=== PATIENT | male | born 1980 ===

== ENCOUNTER 2016-09-03 00:36 | Emergency (ER) | payer OTHER ==
--- NOTE | 2016-09-03 01:20 | ED ORDER SUMMARY ---
..... Patient: AGUS ACOSTA OrderSheet [facility] VisitID: [id number] [address] [place] [address] 36y, M Registration Date/Time: 09/03/2016 ORDER SHEET Weight: 122.4 kg (stated) Allergies: Codeine GENERAL ORDERS: Dress Wounds (:09/03/2016 [facility]) (1:28 CBradburn R.N.) Culture, Wound Surface (Back) (back lesion) Urgent (01:09/03/2016 [facility]) (Ack 1:25 [facility]) (1:26 CHategekimana) MEDICATION ORDERS: Bupivacaine-Epinephrine Injection 0.5 % (soln) (NOW) (:09/03/2016 CBradburn R.N. verbal order read back to [facility]) (Ack 1:09 CBradburn R.N.) (1:09 CBradburn R.N.) Bactrim DS PO (Tablet 800-160 mg) 1 tab (NOW) (:09/03/2016 [facility]) (Ack 1:25 CBradburn R.N.) (1:28 CBradburn R.N.) Ibuprofen PO 600 mg (NOW) (:09/03/2016 [facility]) (Ack 1:25 CBradburn R.N.) (1:28 CBradburn R.N.) IV FLUIDS: ORDER SHEET NOTES: [Electronically signed by Meghna Jenkins R.N. (:09/03/2016)] [Electronically signed by Neftali Cardenas DO (02:11 09/03/2016)] [Electronically locked/signed by Meghna Jenkins R.N. (09/03/2016)]
--- NOTE | 2016-09-03 01:20 | ED CLINICAL REPORT ---
Clinical Report - Physicians/Mid Levels [facility] [address] [place] [place] [address] 09/03/2016 0:36 Patient: AGUS ACOSTA Time Seen: 00:59. Arrived- By private vehicle. Historian- patient. HISTORY OF PRESENT ILLNESS Chief Complaint: LESION and TENDER AREA. This started lesion present for years but several days ago began "leaking" and is still present. It was gradual in onset and has been waxing/waning. It is described as painful. It has been located on the right back. No cause has been identified. Similar symptoms previously: Recent medical care: Not recently seen/assessed. REVIEW OF SYSTEMS No fever, chills, sore throat, cough or headache. No chest pain, abdominal pain, nausea, diarrhea or difficulty with urination. No vomiting. All systems otherwise negative, except as recorded above. PAST HISTORY See nurses notes. Abscess/cyst dental abscess. Surgeries: Abscess I&D. Medications: Potassium Oral 1 tablet, daily. Allergies: Codeine. Definite Moderate(hives). SOCIAL HISTORY Never smoker. Occasional alcohol use. No drug use. ADDITIONAL NOTES The nursing notes have been reviewed. PHYSICAL EXAM Vital Signs: 09/03/2016 00:42 BP: 113/65. HR: 68. RR: 18. O2 saturation: 98%. Temp: 97.9 F. Pain level now: 7/10. Appearance: Alert. Oriented X3. No acute distress. Eyes: Pupils equal, round and reactive to light. Conjunctivae and eyelids normal. ENT: Nose normal. Pharynx normal. Neck: Neck supple. CVS: Normal heart rate and rhythm. Heart sounds normal. Respiratory: No respiratory distress. Breath sounds normal. Abdomen: Nontender. No organomegaly. Skin: Skin warm and dry. Normal skin color. Normal skin turgor. Single small tender indurated area to the back (excoriated, slightly bleeding lesion over area of apparent lipoma). No fluctuance, pointing or drainage. Extremities: Normal external inspection. Extremities nontender. Neuro: Oriented X 3. No motor deficit. No sensory deficit. LABS, X-RAYS, AND EKG Pulse Oximetry: 09/03/2016 00:42 O2 saturation: 98%. (FIO2 - room air). Interpretation: normal. PROGRESS AND PROCEDURES Incision & Drainage of Abscess: The abscess is located in the back. The risks of the procedure, benefits and alternatives were explained. Local anesthesia provided using 0.50% Marcaine with epi. Skin cleansed with Betadine. The abscess was incised with a #11 surgical blade. No pus drained. Sample obtained for cultures and gram stain. A dressing was applied. ( No pus - most consistent with lipoma). Course of Care: Ibuprofen 600 mg PO given. Bactrim DS 1 tab PO. Lesion is c/w lipoma - may have mild superficial cellulitis - appears to be picking the area. I have discussed work up options with patient and he would like to make an incision over the area to be assured that there is no abscess - this is done and no signs of abscess now. He may have mild, early superimposed cellulitis now - I will cover. He is having some discomfort to the area for quite some time and may have the lipomatous lesion removed by his pcp or surgeon electively. Patient/family counseled. Old ED records reviewed. Disposition: Discharged. Condition: stable and improved. CLINICAL IMPRESSION Lipoma located on the back. Possible cellulitis of the back. INSTRUCTIONS Protect wound and keep wound area clean. Change dressing twice daily. You may wash wounds briefly, then dry. Apply neosporin twice daily. Drink plenty of fluids. Warnings: Further evaluation is necessary. It is very important to follow up with a physician. INFECTION: Watch for signs of infection (increasing heat and redness, pus-like drainage, swelling, or increased pain). Return or see your doctor if these signs occur. GENERAL WARNINGS: Return or contact your physician immediately if your condition worsens or changes unexpectedly, if not improving as expected, or if other problems arise. Prescription Medications: Bactrim DS 800 mg / 160 mg: take 1 tablet orally every 12 hours for 3 days. No refill. Substitution is permissible. OTC Medications: Acetaminophen (available over the counter): take according to label instructions. Motrin (available over the counter): take according to label instructions. Follow-up: Follow up with your doctor in about seven days. Follow-up with: [facility], , , [address], , [place], [address]; [facility], , , [address] [place] [address], , [place], ; [facility], [facility], , [address] [place] [address] Follow-up with: [facility], , , [address] [place] [address], [place] [address] Follow up in about five days. (Electronically signed by Neftali Cardenas DO 09/03/2016 2:11)
--- NOTE | 2016-09-03 01:20 | ED NURSING NOTES ---
Clinical Report - Nurses [place] [address] [address] 09/03/2016 0:36 Patient: AGUS ACOSTA TRIAGE Triage time 00:42. Acuity: LEVEL 4. Chief Complaint: SKIN LESION. --00:47 Meghna Jenkins R.N. 00:42 09/03/16. BP: 113/65. HR: 68. RR: 18. O2 saturation: 98%. Temp: 97.9 F. Pain level now: 11/04. --00:47 Meghna Jenkins R.N. Weight: 122.4 kg stated. Height/Length: 79 inches Per Patient. BMI: 30.4. --00:42 Meghna Jenkins R.N. Medications Potassium Oral 1 tablet, daily. --00:45 Meghna Jenkins R.N. Allergies Codeine. Definite Moderate(hives) --00:45 Meghna Jenkins R.N. History Arrived by private vehicle. Historian: patient. Accompanied by family. Primary physician (none). Location - middle aspect of back and back. This is a recurrent problem. Symptoms still present (2 years). It is described as severely painful. ( here for skin abscess started 2 years ago, started leaking tonight very painful). PAST MEDICAL HX: Immunizations: up-to-date. SOCIAL HX: Never smoker. Occasional alcohol use. Last drink was 2 months ago. No drug use. SELF HARM ASSESSMENT: A self harm assessment was performed. The patient answered "no" to the question "Have you recently felt down, depressed, or hopeless?", "Have you noticed less interest or pleasure in doing things?", "Do you have thoughts of harming or killing yourself?", "Are you here because you tried to hurt yourself?", "Have you ever tried to hurt yourself before today?", "Have you recently had thoughts about harming or killing others?" and "Do you have any dangerous items in your possession?". --00:47 Meghna Jenkins R.N. PROBLEMS: Sebaceous Cyst. Dental Caries. --00:45 Meghna Jenkins R.N. Dental Abscess [RuleOut]. --00:45 Meghna Jenkins R.N. ADDITIONAL SURGERIES: Appendectomy. --00:45 Meghna Jenkins R.N. Interventions ID band on patient. --00:47 Meghna Jenkins R.N. PHYSICAL ASSESSMENT Ambulatory to room. GENERAL / NEURO / PSYCH: Alert. The patient does not appear to be in acute distress. Oriented X 4. HEENT: Pupils equal, round and reactive to light. Mucous membranes are pink. RESPIRATORY: Respirations not labored. Breath sounds within normal limits. CVS: Capillary refill less than 2 seconds. Pulses within normal limits. GI / : Abdomen nontender. SKIN: Skin is warm and dry. Single growth with erythema and tenderness on the back. --00:48 Meghna Jenkins R.N. NURSING PROGRESS NOTES Patient gowned. Two patient identifiers checked. Call light placed in reach of patient. Side rails up x 1. Bed placed in lowest position. Brakes of bed on. --00:48 Meghna Jenkins R.N. Patient ready for evaluation- chart flagged. --00:48 Meghna Jenkins R.N. 01:09/03/2016 Bupivacaine-Epinephrine (Bupivacaine-Epinephrine) Injection Injectable 0.5 % given. Allergies verified and confirmed 5 rights. (at bedside for MD use). --01: Meghna Jenkins R.N. 01:09/03/2016 Bactrim DS (Sulfamethoxazole-TMP DS) PO Tablets 1 tab given. Allergies verified and confirmed 5 rights. --01:28 Meghna Jenkins R.N. 01:28 09/03/2016 Ibuprofen PO Tablets 600 mg given. Allergies verified and confirmed 5 rights. --01:28 Meghna Jenkins R.N. I & D: Incision and Drainage of abscess performed by ED physician. The abscess is located on the back. Preparation: Incision and Drainage tray set up with 0.50% Marcaine with epi. Post-procedure: he was stable, no complications, bleeding controlled and dressing intact. Estimated blood loss: 0. ( culture sent to lab). --01:30 Meghna Jenkins R.N. Applied dressing consisting of 4x4 gauze and telfa pad. Secured with tape. --01:37 Meghna Jenkins R.N. DISPOSITION / DISCHARGE Condition at departure: improved and stable. No learning barriers present. Discharge instructions provided and reviewed with the patient and family. Reviewed medication(s) side effects, precautions, dosing and course information. Prescription(s) given to the patient. Patient and family verbalized understanding. Written instructions provided in Upper Sorbian. The patient was discharged home and accompanied by family. He left the Emergency Department ambulatory and via private vehicle. Family member driving. --01:41 Meghna Jenkins R.N. 01:37 09/03/16. BP: 129/76 taken on the left arm, while lying. HR: 89 (regular and normal rate). RR: 18 (regular and unlabored). O2 saturation: 100% on room air. Temp: deferred. Pain level now: 10/05. --01:41 Meghna Jenkins R.N. Departure time: 3. --01:41 Meghna Jenkins R.N. Locked/Released at 09/03/2016 1:41 by Meghna Jenkins R.N.
--- NOTE | 2016-09-03 01:20 | ED ORDER SUMMARY ---
..... Patient: AGUS ACOSTA OrderSheet [facility] VisitID: [id number] [address] [place] [address] 36y, M Registration Date/Time: 09/03/2016 ORDER SHEET Weight: 122.4 kg (stated) Allergies: Codeine GENERAL ORDERS: Dress Wounds (:09/03/2016 [facility]) (1:28 CBradburn R.N.) Culture, Wound Surface (Back) (back lesion) Urgent (01:09/03/2016 [facility]) (Ack 1:25 [facility]) (1:26 CHategekimana) MEDICATION ORDERS: Bupivacaine-Epinephrine Injection 0.5 % (soln) (NOW) (:09/03/2016 CBradburn R.N. verbal order read back to [facility]) (Ack 1:09 CBradburn R.N.) (1:09 CBradburn R.N.) Bactrim DS PO (Tablet 800-160 mg) 1 tab (NOW) (:09/03/2016 [facility]) (Ack 1:25 CBradburn R.N.) (1:28 CBradburn R.N.) Ibuprofen PO 600 mg (NOW) (:09/03/2016 [facility]) (Ack 1:25 CBradburn R.N.) (1:28 CBradburn R.N.) IV FLUIDS: ORDER SHEET NOTES: [Electronically signed by Meghna Jenkins R.N. (:09/03/2016)] [Electronically signed by Neftali Cardenas DO (02:11 09/03/2016)] [Electronically locked/signed by Meghna Jenkins R.N. (09/03/2016)]
--- NOTE | 2016-09-03 01:20 | ED CLINICAL REPORT ---
Clinical Report - Physicians/Mid Levels [facility] [address] [place] [address] 09/03/2016 0:36 Patient: AGUS ACOSTA Time Seen: 00:59. Arrived- By private vehicle. Historian- patient. HISTORY OF PRESENT ILLNESS Chief Complaint: LESION and TENDER AREA. This started lesion present for years but several days ago began "leaking" and is still present. It was gradual in onset and has been waxing/waning. It is described as painful. It has been located on the right back. No cause has been identified. Similar symptoms previously: Recent medical care: Not recently seen/assessed. REVIEW OF SYSTEMS No fever, chills, sore throat, cough or headache. No chest pain, abdominal pain, nausea, diarrhea or difficulty with urination. No vomiting. All systems otherwise negative, except as recorded above. PAST HISTORY See nurses notes. Abscess/cyst dental abscess. Surgeries: Abscess I&D. Medications: Potassium Oral 1 tablet, daily. Allergies: Codeine. Definite Moderate(hives). SOCIAL HISTORY Never smoker. Occasional alcohol use. No drug use. ADDITIONAL NOTES The nursing notes have been reviewed. PHYSICAL EXAM Vital Signs: 09/03/2016 00:42 BP: 113/65. HR: 68. RR: 18. O2 saturation: 98%. Temp: 97.9 F. Pain level now: 7/10. Appearance: Alert. Oriented X3. No acute distress. Eyes: Pupils equal, round and reactive to light. Conjunctivae and eyelids normal. ENT: Nose normal. Pharynx normal. Neck: Neck supple. CVS: Normal heart rate and rhythm. Heart sounds normal. Respiratory: No respiratory distress. Breath sounds normal. Abdomen: Nontender. No organomegaly. Skin: Skin warm and dry. Normal skin color. Normal skin turgor. Single small tender indurated area to the back (excoriated, slightly bleeding lesion over area of apparent lipoma). No fluctuance, pointing or drainage. Extremities: Normal external inspection. Extremities nontender. Neuro: Oriented X 3. No motor deficit. No sensory deficit. LABS, X-RAYS, AND EKG Pulse Oximetry: 09/03/2016 00:42 O2 saturation: 98%. (FIO2 - room air). Interpretation: normal. PROGRESS AND PROCEDURES Incision & Drainage of Abscess: The abscess is located in the back. The risks of the procedure, benefits and alternatives were explained. Local anesthesia provided using 0.50% Marcaine with epi. Skin cleansed with Betadine. The abscess was incised with a #11 surgical blade. No pus drained. Sample obtained for cultures and gram stain. A dressing was applied. ( No pus - most consistent with lipoma). Course of Care: Ibuprofen 600 mg PO given. Bactrim DS 1 tab PO. Lesion is c/w lipoma - may have mild superficial cellulitis - appears to be picking the area. I have discussed work up options with patient and he would like to make an incision over the area to be assured that there is no abscess - this is done and no signs of abscess now. He may have mild, early superimposed cellulitis now - I will cover. He is having some discomfort to the area for quite some time and may have the lipomatous lesion removed by his pcp or surgeon electively. Patient/family counseled. Old ED records reviewed. Disposition: Discharged. Condition: stable and improved. CLINICAL IMPRESSION Lipoma located on the back. Possible cellulitis of the back. INSTRUCTIONS Protect wound and keep wound area clean. Change dressing twice daily. You may wash wounds briefly, then dry. Apply neosporin twice daily. Drink plenty of fluids. Warnings: Further evaluation is necessary. It is very important to follow up with a physician. INFECTION: Watch for signs of infection (increasing heat and redness, pus-like drainage, swelling, or increased pain). Return or see your doctor if these signs occur. GENERAL WARNINGS: Return or contact your physician immediately if your condition worsens or changes unexpectedly, if not improving as expected, or if other problems arise. Prescription Medications: Bactrim DS 800 mg / 160 mg: take 1 tablet orally every 12 hours for 3 days. No refill. Substitution is permissible. OTC Medications: Acetaminophen (available over the counter): take according to label instructions. Motrin (available over the counter): take according to label instructions. Follow-up: Follow up with your doctor in about seven days. Follow-up with: [facility], , , [address], , [place], [address]; [facility], , , [address] [place] [address], , [place], ; [facility], [facility], , [address] [place] [address] Follow-up with: [facility], , , [address] [place] [address], [place] [address] Follow up in about five days. (Electronically signed by Neftali Cardenas DO 09/03/2016 2:11)
--- NOTE | 2016-09-03 02:12 | ED DISCHARGE INSTRUCTIONS ---
Patient: AGUS ACOSTA General [facility] VisitID: [id number] [address] [place] [address] 36y, M Registration Date/Time: 09/03/2016 Lipoma located on the back. INSTRUCTIONS Protect wound and keep wound area clean. Change dressing twice daily. You may wash wounds briefly, then dry. Apply neosporin twice daily. Drink plenty of fluids. Warnings: Further evaluation is necessary. It is very important to follow up with a physician. INFECTION: Watch for signs of infection (increasing heat and redness, pus-like drainage, swelling, or increased pain). Return or see your doctor if these signs occur. GENERAL WARNINGS: Return or contact your physician immediately if your condition worsens or changes unexpectedly, if not improving as expected, or if other problems arise. Prescription Medications: Bactrim DS 800 mg / 160 mg: take 1 tablet orally every 12 hours for 3 days. No refill. Substitution is permissible. OTC Medications: Acetaminophen (available over the counter): take according to label instructions. Motrin (available over the counter): take according to label instructions. Follow-up: Follow up with your doctor in about seven days. Follow-up with: [facility], , , [address], [place] [address]; [facility], , , [address] [place] [address], ; [facility], , [address] [place] [address] Follow-up with: [facility], , , [address] [place] [address], [place] [address] Follow up in about five days. ADDITIONAL INFORMATION Cellulitis You have an infection of the skin known as cellulitis. This usually starts with a scrape, cut, insect bite, blister or other opening in the skin which becomes infected. This is a serious condition. It must be watched closely to be sure the infection is not spreading. With antibiotic treatment, the size of the red area will gradually shrink in size until the skin returns to normal. This will take 7-10 days. The red area should never increase in size once the antibiotic medicine has been started. Occasionally, an infection will be resistant to one antibiotic and another one will have to be used. Home Care: 1) Limit the use of the affected part, since excess movement can cause the infection to spread. 2) If the infection is on your leg, walk as little as possible during the first few days of the treatment. Keep your leg elevated while sitting. This will reduce swelling. 3) Take all of the antibiotic medicine exactly as directed until it is gone. Be careful not to miss any doses, especially during the first seven days. Follow Up with your doctor or this facility as directed. Check the infected area daily for the warning signs listed below. Get Prompt Medical Attention if any of the following occur: -- Spreading area of redness -- Increasing swelling or pain -- Appearance of pus or drainage -- Fever over 100.4 F (38.0 C) oral, or over 101.4 F (38.6 C) rectal, after two days on antibiotics Lipoma (No Treatment) Alipoma is a local overgrowth of fatty tissue. It appears as a soft raised area, usually less than2 inches across. It is a benign condition (not cancer). Home care General information regarding lipoma includes: No special care is needed for a lipoma. You can consider removal for cosmetic reasons. Follow-up care Follow up with your doctor or as advised by our staff if you want to have the lipoma removed at a later time. When to seek medical care Get prompt medical attention if any of the following occur: Redness, pain, tenderness, or drainagefrom the lipoma Lipoma begins to enlarge or change shape Changes in the color of the skin over the lipoma Bandage Change If the bandage becomes wet or dirty, replace it. Otherwise, leave it in place for the first 24 hours. Then once a day: After removing the bandage, wash the area with soap and water. Use a wet cotton swab to loosen and remove any blood or crust that forms on the wound. After cleaning, apply a thin layer of antibiotic ointment or cream. Reapply the bandage. You may shower as usual after the first 24 hours. If the bandage is on an arm or leg, cover it with a plastic bag rubber banded at both ends before showering. No tub baths or swimming until the bandage is removed and the wound healed (at least 7 days). Sulfamethoxazole, Trimethoprim Oral tablet What is this medicine? SULFAMETHOXAZOLE; TRIMETHOPRIM or SMX-TMP (suhl fuh meth OK mone zohl; trye METH oh prim) is a combination of a sulfonamide antibiotic and a second antibiotic, trimethoprim. It is used to treat or prevent certain kinds of bacterial infections. It will not work for colds, flu, or other viral infections. How should I use this medicine? Take this medicine by mouth with a full glass of water. Follow the directions on the prescription label. Take your medicine at regular intervals. Do not take it more often than directed. Do not skip doses or stop your medicine early. Talk to your inspector semiconductor wafer regarding the use of this medicine in children. Special care may be needed. This medicine has been used in children as young as 2 months of age. What side effects may I notice from receiving this medicine? Side effects that you should report to your doctor or health healthcare network pricing consultant as soon as possible: allergic reactions like skin rash or hives, swelling of the face, lips, or tongue breathing problems fever or chills, sore throat irregular heartbeat, chest pain joint or muscle pain pain or difficulty passing urine red pinpoint spots on skin redness, blistering, peeling or loosening of the skin, including inside the mouth unusual bleeding or bruising unusually weak or tired yellowing of the eyes or skin Side effects that usually do not require medical attention (report to your doctor or health healthcare network pricing consultant if they continue or are bothersome): diarrhea dizziness headache loss of appetite nausea, vomiting nervousness What may interact with this medicine? Do not take this medicine with any of the following medications: aminobenzoate potassium dofetilide metronidazole This medicine may also interact with the following medications: ENRRIQUE inhibitors like benazepril, enalapril, lisinopril, and ramipril cyclosporine digoxin diuretics indomethacin medicines for diabetes methenamine methotrexate phenytoin potassium supplements pyrimethamine sulfinpyrazone tricyclic antidepressants warfarin What if I miss a dose? If you miss a dose, take it as soon as you can. If it is almost time for your next dose, take only that dose. Do not take double or extra doses. Where should I keep my medicine? Keep out of the reach of children. Store at room temperature between 20 to 25 degrees C (68 to 77 degrees F). Protect from light. Throw away any unused medicine after the expiration date. What should I tell my health care provider before I take this medicine? They need to know if you have any of these conditions: anemia asthma being treated with anticonvulsants if you frequently drink alcohol containing drinks kidney disease liver disease low level of folic acid or [id number] dehydrogenase poor nutrition or malabsorption porphyria severe allergies thyroid disorder an unusual or allergic reaction to sulfamethoxazole, trimethoprim, sulfa drugs, other medicines, foods, dyes, or preservatives or trying to get breast-feeding What should I watch for while using this medicine? Tell your doctor or health healthcare network pricing consultant if your symptoms do not improve. Drink several glasses of water a day to reduce the risk of kidney problems. Do not treat diarrhea with over the counter products. Contact your doctor if you have diarrhea that lasts more than 2 days or if it is severe and watery. This medicine can make you more sensitive to the sun. Keep out of the sun. If you cannot avoid being in the sun, wear protective clothing and use a sunscreen. Do not use sun lamps or tanning beds/booths. Acetaminophen Oral tablet What is this medicine? ACETAMINOPHEN (a set a VIKA bella fen) is a pain reliever. It is used to treat mild pain and fever. How should I use this medicine? Take this medicine by mouth with a glass of water. Follow the directions on the package or prescription label. Take your medicine at regular intervals. Do not take your medicine more often than directed. Talk to your inspector semiconductor wafer regarding the use of this medicine in children. While this drug may be prescribed for children as young as 6 years of age for selected conditions, precautions do apply. What side effects may I notice from receiving this medicine? Side effects that you should report to your doctor or health healthcare network pricing consultant as soon as possible: allergic reactions like skin rash, itching or hives, swelling of the face, lips, or tongue breathing problems fever or sore throat redness, blistering, peeling or loosening of the skin, including inside the mouth trouble passing urine or change in the amount of urine unusual bleeding or bruising unusually weak or tired yellowing of the eyes or skin Side effects that usually do not require medical attention (report to your doctor or health healthcare network pricing consultant if they continue or are bothersome): headache nausea, stomach upset What may interact with this medicine? alcohol imatinib isoniazid other medicines with acetaminophen What if I miss a dose? If you miss a dose, take it as soon as you can. If it is almost time for your next dose, take only that dose. Do not take double or extra doses. Where should I keep my medicine? Keep out of reach of children. Store at room temperature between 20 and 25 degrees C (68 and 77 degrees F). Protect from moisture and heat. Throw away any unused medicine after the expiration date. What should I tell my health care provider before I take this medicine? They need to know if you have any of these conditions: if you frequently drink alcohol containing drinks liver disease an unusual or allergic reaction to acetaminophen, other medicines, foods, dyes or preservatives or trying to get breast-feeding What should I watch for while using this medicine? Tell your doctor or health healthcare network pricing consultant if the pain lasts more than 10 days (5 days for children), if it gets worse, or if there is a new or different kind of pain. Also, check with your doctor if a fever lasts for more than 3 days. Do not take other medicines that contain acetaminophen with this medicine. Always read labels carefully. If you have questions, ask your doctor or pharmacist. If you take too much acetaminophen get medical help right away. Too much acetaminophen can be very dangerous and cause liver damage. Even if you do not have symptoms, it is important to get help right away. Ibuprofen Oral tablet What is this medicine? IBUPROFEN (eye BYOO proe fen) is a non-steroidal anti-inflammatory drug (NSAID). It is used for dental pain, fever, headaches or migraines, osteoarthritis, rheumatoid arthritis, or painful monthly periods. It can also relieve minor aches and pains caused by a cold, flu, or sore throat. How should I use this medicine? Take this medicine by mouth with a glass of water. Follow the directions on the prescription label. Take this medicine with food if your stomach gets upset. Try to not lie down for at least 10 minutes after you take the medicine. Take your medicine at regular intervals. Do not take your medicine more often than directed. A special MedGuide will be given to you by the pharmacist with each prescription and refill. Be sure to read this information carefully each time. Talk to your inspector semiconductor wafer regarding the use of this medicine in children. Special care may be needed. What side effects may I notice from receiving this medicine? Side effects that you should report to your doctor or health healthcare network pricing consultant as soon as possible: allergic reactions like skin rash, itching or hives, swelling of the face, lips, or tongue black or bloody stools, blood in the urine or in vomit breathing problems changes in vision chest pain general ill feeling or flu-like symptoms nausea or vomiting redness, blistering, peeling or loosening of the skin, including inside the mouth slurred speech or weakness on one side of the body stomach pain unexplained weight gain or swelling unusually weak or tired yellowing of eyes or skin Side effects that usually do not require medical attention (report to your doctor or health healthcare network pricing consultant if they continue or are bothersome): constipation or diarrhea dizziness gas or heartburn stomach upset What may interact with this medicine? Do not take this medicine with any of the following medications: cidofovir ketorolac methotrexate pemetrexed This medicine may also interact with the following medications: alcohol aspirin diuretics lithium other drugs for inflammation like prednisone warfarin What if I miss a dose? If you miss a dose, take it as soon as you can. If it is almost time for your next dose, take only that dose. Do not take double or extra doses. Where should I keep my medicine? Keep out of the reach of children. Store at room temperature between 15 and 30 degrees C (59 and 86 degrees F). Keep container tightly closed. Throw away any unused medicine after the expiration date. What should I tell my health care provider before I take this medicine? They need to know if you have any of these conditions: asthma cigarette smoker drink more than 3 alcohol containing drinks a day heart disease or circulation problems such as heart failure or leg edema (fluid retention) high blood pressure kidney disease liver disease stomach bleeding or ulcers an unusual or allergic reaction to ibuprofen, aspirin, other NSAIDS, other medicines, foods, dyes, or preservatives or trying to get breast-feeding What should I watch for while using this medicine? Tell your doctor or healthcare professional if your symptoms do not start to get better or if they get worse. This medicine does not prevent heart attack or stroke. In fact, this medicine may increase the chance of a heart attack or stroke. The chance may increase with longer use of this medicine and in people who have heart disease. If you take aspirin to prevent heart attack or stroke, talk with your doctor or health healthcare network pricing consultant. Do not take other medicines that contain aspirin, ibuprofen, or naproxen with this medicine. Side effects such as stomach upset, nausea, or ulcers may be more likely to occur. Many medicines available without a prescription should not be taken with this medicine. This medicine can cause ulcers and bleeding in the stomach and intestines at any time during treatment. Ulcers and bleeding can happen without warning symptoms and can cause . To reduce your risk, do not smoke cigarettes or drink alcohol while you are taking this medicine. You may get drowsy or dizzy. Do not drive, use machinery, or do anything that needs mental alertness until you know how this medicine affects you. Do not stand or sit up quickly, especially if you are an older patient. This reduces the risk of dizzy or fainting spells. This medicine can cause you to bleed more easily. Try to avoid damage to your teeth and gums when you brush or floss your teeth. You have been given the following additional information: Cellulitis Lipoma Dressing Change Sulfamethoxazole, Trimethoprim Oral tablet Acetaminophen Oral tablet Ibuprofen Oral tablet (Electronically signed by Neftali Cardenas DO 09/03/2016 2:11)
--- NOTE | 2016-09-03 02:12 | ED DISCHARGE INSTRUCTIONS ---
Patient: AGUS ACOSTA General Instructions [facility] VisitID: [id number] [address] [place] [address] 36y, M Registration Date/Time: 09/03/2016 Lipoma located on the back. INSTRUCTIONS Protect wound and keep wound area clean. Change dressing twice daily. You may wash wounds briefly, then dry. Apply neosporin twice daily. Drink plenty of fluids. Warnings: Further evaluation is necessary. It is very important to follow up with a physician. INFECTION: Watch for signs of infection (increasing heat and redness, pus-like drainage, swelling, or increased pain). Return or see your doctor if these signs occur. GENERAL WARNINGS: Return or contact your physician immediately if your condition worsens or changes unexpectedly, if not improving as expected, or if other problems arise. Prescription Medications: Bactrim DS 800 mg / 160 mg: take 1 tablet orally every 12 hours for 3 days. No refill. Substitution is permissible. OTC Medications: Acetaminophen (available over the counter): take according to label instructions. Motrin (available over the counter): take according to label instructions. Follow-up: Follow up with your doctor in about seven days. Follow-up with: [facility], , , [address], [place] [address]; [facility], , , [address] [place] [address], ; [facility], [facility], , [address] [place] [address] Follow-up with: [facility], , , [address] [place] [address], [place] [address] Follow up in about five days. ADDITIONAL INFORMATION Cellulitis You have an infection of the skin known as cellulitis. This usually starts with a scrape, cut, insect bite, blister or other opening in the skin which becomes infected. This is a serious condition. It must be watched closely to be sure the infection is not spreading. With antibiotic treatment, the size of the red area will gradually shrink in size until the skin returns to normal. This will take 7-10 days. The red area should never increase in size once the antibiotic medicine has been started. Occasionally, an infection will be resistant to one antibiotic and another one will have to be used. Home Care: 1) Limit the use of the affected part, since excess movement can cause the infection to spread. 2) If the infection is on your leg, walk as little as possible during the first few days of the treatment. Keep your leg elevated while sitting. This will reduce swelling. 3) Take all of the antibiotic medicine exactly as directed until it is gone. Be careful not to miss any doses, especially during the first seven days. Follow Up with your doctor or this facility as directed. Check the infected area daily for the warning signs listed below. Get Prompt Medical Attention if any of the following occur: -- Spreading area of redness -- Increasing swelling or pain -- Appearance of pus or drainage -- Fever over 100.4 F (38.0 C) oral, or over 101.4 F (38.6 C) rectal, after two days on antibiotics Lipoma (No Treatment) Alipoma is a local overgrowth of fatty tissue. It appears as a soft raised area, usually less than2 inches across. It is a benign condition (not cancer). Home care General information regarding lipoma includes: No special care is needed for a lipoma. You can consider removal for cosmetic reasons. Follow-up care Follow up with your doctor or as advised by our staff if you want to have the lipoma removed at a later time. When to seek medical care Get prompt medical attention if any of the following occur: Redness, pain, tenderness, or drainagefrom the lipoma Lipoma begins to enlarge or change shape Changes in the color of the skin over the lipoma Bandage Change If the bandage becomes wet or dirty, replace it. Otherwise, leave it in place for the first 24 hours. Then once a day: After removing the bandage, wash the area with soap and water. Use a wet cotton swab to loosen and remove any blood or crust that forms on the wound. After cleaning, apply a thin layer of antibiotic ointment or cream. Reapply the bandage. You may shower as usual after the first 24 hours. If the bandage is on an arm or leg, cover it with a plastic bag rubber banded at both ends before showering. No tub baths or swimming until the bandage is removed and the wound healed (at least 7 days). Sulfamethoxazole, Trimethoprim Oral tablet What is this medicine? SULFAMETHOXAZOLE; TRIMETHOPRIM or SMX-TMP (suhl fuh meth OK mone zohl; trye METH oh prim) is a combination of a sulfonamide antibiotic and a second antibiotic, trimethoprim. It is used to treat or prevent certain kinds of bacterial infections. It will not work for colds, flu, or other viral infections. How should I use this medicine? Take this medicine by mouth with a full glass of water. Follow the directions on the prescription label. Take your medicine at regular intervals. Do not take it more often than directed. Do not skip doses or stop your medicine early. Talk to your research quality assurance specialist regarding the use of this medicine in children. Special care may be needed. This medicine has been used in children as young as 2 months of age. What side effects may I notice from receiving this medicine? Side effects that you should report to your doctor or health reproductive healthcare assistant as soon as possible: allergic reactions like skin rash or hives, swelling of the face, lips, or tongue breathing problems fever or chills, sore throat irregular heartbeat, chest pain joint or muscle pain pain or difficulty passing urine red pinpoint spots on skin redness, blistering, peeling or loosening of the skin, including inside the mouth unusual bleeding or bruising unusually weak or tired yellowing of the eyes or skin Side effects that usually do not require medical attention (report to your doctor or health reproductive healthcare assistant if they continue or are bothersome): diarrhea dizziness headache loss of appetite nausea, vomiting nervousness What may interact with this medicine? Do not take this medicine with any of the following medications: aminobenzoate potassium dofetilide metronidazole This medicine may also interact with the following medications: ENRRIQUE inhibitors like benazepril, enalapril, lisinopril, and ramipril cyclosporine digoxin diuretics indomethacin medicines for diabetes methenamine methotrexate phenytoin potassium supplements pyrimethamine sulfinpyrazone tricyclic antidepressants warfarin What if I miss a dose? If you miss a dose, take it as soon as you can. If it is almost time for your next dose, take only that dose. Do not take double or extra doses. Where should I keep my medicine? Keep out of the reach of children. Store at room temperature between 20 to 25 degrees C (68 to 77 degrees F). Protect from light. Throw away any unused medicine after the expiration date. What should I tell my health care provider before I take this medicine? They need to know if you have any of these conditions: anemia asthma being treated with anticonvulsants if you frequently drink alcohol containing drinks kidney disease liver disease low level of folic acid or [id number] dehydrogenase poor nutrition or malabsorption porphyria severe allergies thyroid disorder an unusual or allergic reaction to sulfamethoxazole, trimethoprim, sulfa drugs, other medicines, foods, dyes, or preservatives or trying to get breast-feeding What should I watch for while using this medicine? Tell your doctor or health reproductive healthcare assistant if your symptoms do not improve. Drink several glasses of water a day to reduce the risk of kidney problems. Do not treat diarrhea with over the counter products. Contact your doctor if you have diarrhea that lasts more than 2 days or if it is severe and watery. This medicine can make you more sensitive to the sun. Keep out of the sun. If you cannot avoid being in the sun, wear protective clothing and use a sunscreen. Do not use sun lamps or tanning beds/booths. Acetaminophen Oral tablet What is this medicine? ACETAMINOPHEN (a set a VIKA bella fen) is a pain reliever. It is used to treat mild pain and fever. How should I use this medicine? Take this medicine by mouth with a glass of water. Follow the directions on the package or prescription label. Take your medicine at regular intervals. Do not take your medicine more often than directed. Talk to your research quality assurance specialist regarding the use of this medicine in children. While this drug may be prescribed for children as young as 6 years of age for selected conditions, precautions do apply. What side effects may I notice from receiving this medicine? Side effects that you should report to your doctor or health reproductive healthcare assistant as soon as possible: allergic reactions like skin rash, itching or hives, swelling of the face, lips, or tongue breathing problems fever or sore throat redness, blistering, peeling or loosening of the skin, including inside the mouth trouble passing urine or change in the amount of urine unusual bleeding or bruising unusually weak or tired yellowing of the eyes or skin Side effects that usually do not require medical attention (report to your doctor or health reproductive healthcare assistant if they continue or are bothersome): headache nausea, stomach upset What may interact with this medicine? alcohol imatinib isoniazid other medicines with acetaminophen What if I miss a dose? If you miss a dose, take it as soon as you can. If it is almost time for your next dose, take only that dose. Do not take double or extra doses. Where should I keep my medicine? Keep out of reach of children. Store at room temperature between 20 and 25 degrees C (68 and 77 degrees F). Protect from moisture and heat. Throw away any unused medicine after the expiration date. What should I tell my health care provider before I take this medicine? They need to know if you have any of these conditions: if you frequently drink alcohol containing drinks liver disease an unusual or allergic reaction to acetaminophen, other medicines, foods, dyes or preservatives or trying to get breast-feeding What should I watch for while using this medicine? Tell your doctor or health reproductive healthcare assistant if the pain lasts more than 10 days (5 days for children), if it gets worse, or if there is a new or different kind of pain. Also, check with your doctor if a fever lasts for more than 3 days. Do not take other medicines that contain acetaminophen with this medicine. Always read labels carefully. If you have questions, ask your doctor or pharmacist. If you take too much acetaminophen get medical help right away. Too much acetaminophen can be very dangerous and cause liver damage. Even if you do not have symptoms, it is important to get help right away. Ibuprofen Oral tablet What is this medicine? IBUPROFEN (eye BYOO proe fen) is a non-steroidal anti-inflammatory drug (NSAID). It is used for dental pain, fever, headaches or migraines, osteoarthritis, rheumatoid arthritis, or painful monthly periods. It can also relieve minor aches and pains caused by a cold, flu, or sore throat. How should I use this medicine? Take this medicine by mouth with a glass of water. Follow the directions on the prescription label. Take this medicine with food if your stomach gets upset. Try to not lie down for at least 10 minutes after you take the medicine. Take your medicine at regular intervals. Do not take your medicine more often than directed. A special MedGuide will be given to you by the pharmacist with each prescription and refill. Be sure to read this information carefully each time. Talk to your research quality assurance specialist regarding the use of this medicine in children. Special care may be needed. What side effects may I notice from receiving this medicine? Side effects that you should report to your doctor or health reproductive healthcare assistant as soon as possible: allergic reactions like skin rash, itching or hives, swelling of the face, lips, or tongue black or bloody stools, blood in the urine or in vomit breathing problems changes in vision chest pain general ill feeling or flu-like symptoms nausea or vomiting redness, blistering, peeling or loosening of the skin, including inside the mouth slurred speech or weakness on one side of the body stomach pain unexplained weight gain or swelling unusually weak or tired yellowing of eyes or skin Side effects that usually do not require medical attention (report to your doctor or health reproductive healthcare assistant if they continue or are bothersome): constipation or diarrhea dizziness gas or heartburn stomach upset What may interact with this medicine? Do not take this medicine with any of the following medications: cidofovir ketorolac methotrexate pemetrexed This medicine may also interact with the following medications: alcohol aspirin diuretics lithium other drugs for inflammation like prednisone warfarin What if I miss a dose? If you miss a dose, take it as soon as you can. If it is almost time for your next dose, take only that dose. Do not take double or extra doses. Where should I keep my medicine? Keep out of the reach of children. Store at room temperature between 15 and 30 degrees C (59 and 86 degrees F). Keep container tightly closed. Throw away any unused medicine after the expiration date. What should I tell my health care provider before I take this medicine? They need to know if you have any of these conditions: asthma cigarette smoker drink more than 3 alcohol containing drinks a day heart disease or circulation problems such as heart failure or leg edema (fluid retention) high blood pressure kidney disease liver disease stomach bleeding or ulcers an unusual or allergic reaction to ibuprofen, aspirin, other NSAIDS, other medicines, foods, dyes, or preservatives or trying to get breast-feeding What should I watch for while using this medicine? Tell your doctor or healthcare professional if your symptoms do not start to get better or if they get worse. This medicine does not prevent heart attack or stroke. In fact, this medicine may increase the chance of a heart attack or stroke. The chance may increase with longer use of this medicine and in people who have heart disease. If you take aspirin to prevent heart attack or stroke, talk with your doctor or health reproductive healthcare assistant. Do not take other medicines that contain aspirin, ibuprofen, or naproxen with this medicine. Side effects such as stomach upset, nausea, or ulcers may be more likely to occur. Many medicines available without a prescription should not be taken with this medicine. This medicine can cause ulcers and bleeding in the stomach and intestines at any time during treatment. Ulcers and bleeding can happen without warning symptoms and can cause . To reduce your risk, do not smoke cigarettes or drink alcohol while you are taking this medicine. You may get drowsy or dizzy. Do not drive, use machinery, or do anything that needs mental alertness until you know how this medicine affects you. Do not stand or sit up quickly, especially if you are an older patient. This reduces the risk of dizzy or fainting spells. This medicine can cause you to bleed more easily. Try to avoid damage to your teeth and gums when you brush or floss your teeth. You have been given the following additional information: Cellulitis Lipoma Dressing Change Sulfamethoxazole, Trimethoprim Oral tablet Acetaminophen Oral tablet Ibuprofen Oral tablet (Electronically signed by Neftali Cardenas DO 09/03/2016 2:11)
--- NOTE | 2016-09-03 02:12 | ED MED RECONCILIATION SUMMARY ---
Patient: AGUS ACOSTA Medication Reconciliation Report [facility] VisitID: [id number] [address] [place] [address] 36y, M Registration Date/Time: 09/03/2016 Weight: 122.4 kg Height/Length: 79 in. BMI: 30.4 ALLERGIES: Codeine The patient's Home Medications are listed below: THE FOLLOWING MEDICATIONS NEED TO BE RECONCILED: Potassium Oral 1 tablet, daily The source(s) of the original Home Medication information: Not obtained. The following Medications were given to the patient in the Emergency Department: Bupivacaine-Epinephrine [Injection] Injection 0.5 %, administered: 09/03/2016 1:09:00 AM Bactrim DS [PO] PO 1 tab, administered: 09/03/2016 1:28:00 AM Ibuprofen [PO] PO 600 mg, administered: 09/03/2016 1:28:00 AM The following Medications were prescribed to the patient: Acetaminophen (available over the counter): take according to label instructions. -- Neftali Cardenas DO Motrin (available over the counter): take according to label instructions. -- Neftali Cardenas DO Bactrim DS 800 mg / 160 mg: take 1 tablet orally every 12 hours for 3 days. No refill. Substitution is permissible. -- Neftali Cardenas DO
--- NOTE | 2016-09-03 02:12 | ED MAR SUMMARY ---
..... Medication Administration Record [facility] [address] [place] [address] Patient: AGUS ACOSTA Visit ID: [id number] 36y, M Weight: 122.4 kg Height/Length: 79 in BMI: 30.4 ALLERGIES: Codeine Given 01:09/03/2016 Meghna Jenkins R.N. Medication Administered: BUPIVACAINE-EPINEPHRINE [INJECTION] (BUPIVACAINE-EPINEPHRINE), Dose: 0.5 % Injectable Injection. Medication Ordered: Bupivacaine-Epinephrine Injection 0.5 % (soln) (NOW). Given 09/03/2016 Meghna Jenkins R.N. Medication Administered: BACTRIM DS [PO] (SULFAMETHOXAZOLE-TMP DS), Dose: 1 tab Tablets PO. Medication Ordered: Bactrim DS PO (Tablet 800-160 mg) 1 tab (NOW). Given 09/03/2016 Meghna Jenkins R.N. Medication Administered: IBUPROFEN [PO], Dose: 600 mg Tablets PO. Medication Ordered: Ibuprofen PO 600 mg (NOW).
--- NOTE | 2016-09-03 02:12 | ED MAR SUMMARY ---
..... Medication Administration Record [facility] [address] [place] [address] Patient: AGUS ACOSTA Visit ID: [id number] 36y, M Weight: 122.4 kg Height/Length: 79 in BMI: 30.4 ALLERGIES: Codeine Given 01:09/03/2016 Mgehna Jenkins R.N. Medication Administered: BUPIVACAINE-EPINEPHRINE [INJECTION] (BUPIVACAINE-EPINEPHRINE), Dose: 0.5 % Injectable Injection. Medication Ordered: Bupivacaine-Epinephrine Injection 0.5 % (soln) (NOW). Given 09/03/2016 Meghna Jenkins R.N. Medication Administered: BACTRIM DS [PO] (SULFAMETHOXAZOLE-TMP DS), Dose: 1 tab Tablets PO. Medication Ordered: Bactrim DS PO (Tablet 800-160 mg) 1 tab (NOW). Given 09/03/2016 Meghna Jenkins R.N. Medication Administered: IBUPROFEN [PO], Dose: 600 mg Tablets PO. Medication Ordered: Ibuprofen PO 600 mg (NOW).
--- NOTE | 2016-09-03 02:12 | ED MED RECONCILIATION SUMMARY ---
Patient: AGUS ACOSTA Medication Reconciliation Report [facility] VisitID: [id number] [address] [place] [address] 36y, M Registration Date/Time: 09/03/2016 Weight: 122.4 kg Height/Length: 79 in. BMI: 30.4 ALLERGIES: Codeine The patient's Home Medications are listed below: THE FOLLOWING MEDICATIONS NEED TO BE RECONCILED: Potassium Oral 1 tablet, daily The source(s) of the original Home Medication information: Not obtained. The following Medications were given to the patient in the Emergency Department: Bupivacaine-Epinephrine [Injection] Injection 0.5 %, administered: 09/03/2016 1:09:00 AM Bactrim DS [PO] PO 1 tab, administered: 09/03/2016 1:28:00 AM Ibuprofen [PO] PO 600 mg, administered: 09/03/2016 1:28:00 AM The following Medications were prescribed to the patient: Acetaminophen (available over the counter): take according to label instructions. -- Neftali Cardenas DO Motrin (available over the counter): take according to label instructions. -- Neftali Cardenas DO Bactrim DS 800 mg / 160 mg: take 1 tablet orally every 12 hours for 3 days. No refill. Substitution is permissible. -- Neftali Cardenas DO
== END 2016-09-03 01:33 | disposition home or self-care (01) ==
LOC: ED SRH 00:36
DX: D17.1 Benign lipomatous neoplasm of skin and subcutaneous tissue of trunk (principal); Z88.5 Allergy status to narcotic agent
CPT/HCPCS: 90131; 90309